=== PATIENT | female | born 1930 | race Caucasian/White ===

== ENCOUNTER 2016-03-02 21:38 | Inpatient (IN) | payer OTHER, BC ==
[~2016-03-02] VITALS: Ht 165.1 cm; Wt 114.8 kg
--- NOTE | ~2016-03-02 | 2DMMODE ---
[facility] [place] [address] 2 D/M-MODE ECHOCARDIOGRAM Name: CARINAVÍCTOR J Room #: 420-P [facility] IN .#: [id number] Admission: 03/02/16 Attend Phys: Keith Gibson MD Discharge: Date of : 30 Date of Service: 03/03/16 1526 Report #: [id number] THIS REPORT FOR: //name// Transthoracic Echocardiography Ordering physician: Glenny Sanchez Referring physician: Alexandra Dowell Kate E. Pi/Senior Research Associate: JAK Orozco Indications/History: Near syncope, HTN. BP: 152 / HR: 91bpm Height: 65in Weight: 252.5lb 50 Study data: M-mode, complete 2D, complete spectral Doppler, and color Doppler. Location: Bedside. Routine. Image quality was adequate. The study was technically limited due to restricted patient mobility and body habitus. No measurements were obtainable.The parasternal window was low, thus no M-mode measurements were recorded. 2D measurements Normal Normal LVID ED 36-57 IVS ED 6-11 LVID ES 23-40 LVPW ED 6-11 LA volume index 18ml/m2 16-28 AoRoot diam ED 21-37 LVOT diameter 18-23 Findings: Left ventricle: The cavity size was normal. Wall thickness was normal. Systolic function was normal. The estimated ejection fraction was in the range of 55% to 60%. Wall motion was normal. Right ventricle: The cavity size was normal. Systolic function was normal. Right atrium: The atrium was normal in size. Left atrium: The atrium was normal in size. Volume index: 18ml/m2 (S). Aortic valve: Trileaflet; mildly calcified leaflets. Doppler: There was no stenosis. No regurgitation. [facility] [address] [place] [address] 2 D/M-MODE ECHOCARDIOGRAM Name: VÍCTOR LIM Room #: 420-P [facility] IN [place]#: [id number] Admission: 03/02/16 Attend Phys: Keith Gibson MD Discharge: Date of : 30 Date of Service: 03/03/16 1526 Report #: [id number] Peak velocity: 148.3cm/s (S). Mitral valve: Structurally normal valve. Doppler: There was no evidence for stenosis. No regurgitation. Peak E-wave velocity: 92cm/s. Peak gradient: 3.4mm Hg (D). Peak A-wave velocity: 125.1cm/s. Tricuspid valve: Structurally normal valve. Doppler: There was no evidence for stenosis. No regurgitation. Pulmonic valve: Structurally normal valve. Doppler: There was no evidence for stenosis. No regurgitation. Pericardium: There was no pericardial effusion. Aorta: Aortic root: The aortic root was normal in size. Pulmonary artery: Pressure could not be reliably determined due to minimal or absent tricuspid insufficiency jet, but pulmonary hypertension was not suggested. Diastolic function: Doppler parameters are consistent with abnormal left ventricular relaxation (grade 1 diastolic dysfunction). Systemic veins: Inferior vena cava: Not well visualized. Conclusions 1. Left ventricle: The cavity size was normal. Wall thickness was normal. Systolic function was normal. The estimated ejection fraction was in the range of 55% to 60%. 2. Aortic valve: Trileaflet; mildly calcified leaflets. No regurgitation. 3. Mitral valve: Structurally normal valve. No regurgitation. 4. Tricuspid valve: Structurally normal valve. 5. Pulmonary arteries: Pressure could not be reliably determined due to minimal or absent tricuspid insufficiency jet, but pulmonary hypertension was not suggested. <ELECTRONICALLY SIGNED> By: Charlie Acuna MD 03/03/16 1707 1526 06 Charlie Acuna MD /rafa
--- NOTE | ~2016-03-02 | EKG ---
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
[2016-03-02 21:39] VITALS: BP 136/56
[2016-03-02] MEDS ORDERED: NAPROSYN500 MG PO (21:51)
[2016-03-02] MEDS ORDERED: NEXIUM40 MG PO (21:51)
[2016-03-02] MEDS ORDERED: SEROQUEL 25 MG25 M1 PO ×2 (21:52→22:02)
[2016-03-02] MEDS ORDERED: LISINOPRIL10 MG PO (21:52)
[2016-03-02] MEDS ORDERED: KEPPRA 500 MG500 M1 PO (21:53)
[2016-03-02] MEDS ORDERED: XANAX 0.25 MG0.25 MG PO (21:53)
[2016-03-02] MEDS ORDERED: LEVOTHYROXINE 0.1 MG PO (21:53)
[2016-03-02] MEDS ORDERED: LEXAPRO20 MG PO (21:54)
[2016-03-02] MEDS ORDERED: BUSPIRONE HCL10 MG PO (21:54)
[2016-03-02] MEDS ORDERED: EXELON 9.5 MG9.5 MG TOP (21:54)
[2016-03-02] MEDS ORDERED: NAMENDA 10 MG T10 MG PO (21:55)
[2016-03-02] MEDS ORDERED: CALCIUM500 M1 PO (21:56)
[2016-03-02] MEDS ORDERED: VITAMIN E400 UNIT PO (21:56)
[2016-03-02] MEDS ORDERED: HYDROCODON-ACE1 EAC7 PO (21:56)
[2016-03-02] MEDS ORDERED: UNICOMPLEX M TA1 TA1 PO (21:57)
[2016-03-02] MEDS ORDERED: SLOW RELEASE I142 M1 PO (21:57)
[2016-03-02] MEDS ORDERED: PHILLIPS' COLO1 EACH PO (21:58)
[2016-03-02] MEDS ORDERED: HYDROCHLOROTH12.5 M1 PO (22:04)
[2016-03-02 22:05] LABS: ABSOLUTE NEUTROPHILS 5.4 thou/uL (1.4-8.2); BASOPHILS 1.2 % (0.0-2.0); EOSINOPHILS 6.5 % (0.0-3.0); HEMATOCRIT 35.3 % (37.0-47.0); HEMOGLOBIN 11.7 gm/dL (12.0-15.0); LYMPHOCYTES 22.6 % (24.0-44.0); MCH 32.8 pg (26.0-34.0); MCHC 33.1 % (28.0-37.0); MONOCYTES 8.4 % (1.0-8.0); PLATELET COUNT 170 thou/uL (150-400); POLYS 61.3 % (36.0-66.0); RBC 3.57 mil/uL (4.20-5.00); RDW 13.8 % (10.5-14.5); WBC 8.8 thou/uL (4.0-11.0)
[2016-03-02 22:06] LABS: MANUAL DIFF NO
[2016-03-02 22:13] LABS: ANION GAP 5 mmol/L (7-16); BUN 45 mg/dL (7-18); CALCIUM 9.3 mg/dL (8.5-10.1); CHLORIDE 107 mmol/L (98-107); CO2 31 mmol/L (21-32); CREATININE 1.7 mg/dL (0.6-1.3); GLUCOSE 102 mg/dL (70-99); POTASSIUM 5.6 mmol/L (3.5-5.1); SODIUM 143 mmol/L (136-145)
[2016-03-02 22:21] LABS: TROPONIN-I < 0.04 ng/mL (<0.04-0.07)
[2016-03-03 00:36] VITALS: BP 156/72
[2016-03-03 00:48] LABS: URINE BILIRUBIN NEGATIVE (Negative); URINE BLOOD 1+ (Negative); URINE COLOR YELLOW; URINE GLUCOSE-RANDOM* NEGATIVE (Negative); URINE KETONES NEGATIVE (Negative); URINE NITRITE NEGATIVE (Negative); URINE PROTEIN (DIPSTICK) NEGATIVE (Negative); URINE UROBILINOGEN 0.2 E.U./dl (0.2-1.0)
[2016-03-03 01:01] VITALS: BP 116/53
[2016-03-03 01:05] LABS: CASTS None Seen /LPF (None Seen); SQUAMOUS 0-3 Few /LPF (0-3)
[2016-03-03 01:06] LABS: BACTERIA 1-9 Few /HPF (None Seen); CRYSTALS None Seen /LPF (None Seen); URINE RBC 3-10 Few /HPF (0-2); URINE WBC 0-5 Rare /HPF (0-5)
[2016-03-03 05:27] LABS: HEMATOCRIT 33.8 % (37.0-47.0); HEMOGLOBIN 11.1 gm/dL (12.0-15.0); MCH 33.1 pg (26.0-34.0); MCHC 32.8 % (28.0-37.0); MCV 100.8 fL (80.0-100.0); RBC 3.35 mil/uL (4.20-5.00); RDW 13.9 % (10.5-14.5); WBC 9.1 thou/uL (4.0-11.0)
[2016-03-03 06:06] LABS: CREATININE 1.4 mg/dL (0.6-1.3)
[2016-03-03 07:30] VITALS: BP 152/50
[2016-03-03] MEDS ORDERED: COLESTIPOL HCL1 G1 PO (08:40)
[2016-03-03 10:40] LABS: CHOLESTEROL 256 mg/dL (<200); HDL CHOLESTEROL 49 mg/dL (>40); LDL CHOLESTEROL 174 mg/dL (<100); TC:HDL 5.2 Ratio (Not establshd); TRIGLYCERIDE 169 mg/dL (<150); VLDL 34 mg/dL (<40)
[2016-03-03 16:55] VITALS: BP 154/69
[2016-03-03 20:00] VITALS: BP 149/72
[2016-03-04 04:30] VITALS: BP 150/54
[2016-03-04 05:48] LABS: ALBUMIN 2.9 g/dL (3.4-5.0); CALCIUM 8.9 mg/dL (8.5-10.1); CREATININE 1.3 mg/dL (0.6-1.3); MAGNESIUM 1.9 mg/dL (1.8-2.4); PHOSPHORUS 4.2 mg/dL (2.5-4.9); POTASSIUM 4.5 mmol/L (3.5-5.1)
[2016-03-04 07:13] VITALS: BP 143/54
[2016-03-04] MEDS ORDERED: NORVASC10 MG PO (10:23)
[2016-03-04 11:06] VITALS: BP 143/54
== END 2016-03-04 14:10 | disposition home or self-care (01) | DRG 682 ==
LOC: ER 21:38 → 4E 23:57 → EROBS 23:57 → 4E 03-03 00:37
PROVIDERS: Emergency Medicine; Hospitalist
DX: N17.0 Acute kidney failure with tubular necrosis (principal); G93.41 Metabolic encephalopathy; E44.1 Mild protein-calorie malnutrition; I12.9 Hypertensive chronic kidney disease with stage 1 through stage 4 chronic kidney disease, or unspecified chronic kidney disease; E86.0 Dehydration; G30.9 Alzheimer's disease, unspecified; F02.80 Dementia in other diseases classified elsewhere, unspecified severity, without behavioral disturbance, psychotic disturbance, mood disturbance, and anxiety; E87.5 Hyperkalemia; Z66 Do not resuscitate; E03.9 Hypothyroidism, unspecified; E87.70 Fluid overload, unspecified; N18.9 Chronic kidney disease, unspecified; Z79.899 Other long term (current) drug therapy; Z87.891 Personal history of nicotine dependence; Z86.73 Personal history of transient ischemic attack (TIA), and cerebral infarction without residual deficits
CPT/HCPCS: 10783